=== PATIENT | male | born 1955 | race Caucasian/White ===

== ENCOUNTER 2020-10-01 08:13 | Emergency (ER) | payer OTHER, SELFPAY ==
--- NOTE | ~2020-10-01 | US_ITS ---
EXAMINATION: US VENOUS ULTRASOUND WITH DOPPLER LOWER EXTREMITY, RIGHT CLINICAL INFORMATION: A COMPARISON: None TECHNIQUE: Ultrasound of the deep veins is performed from the hip to the calf with compression sonography and color and pulse Doppler assessment. Spectral analysis with color-flow imaging is performed. FINDINGS: There is normal venous compression and respiratory variation and augmented flow. The visualized common femoral vein, superficial femoral vein, profunda femoral vein, popliteal vein, and the trifurcation region shows no evidence of deep venous thrombosis. There is no significant popliteal fossa cyst. If the patient's symptoms persist, followup ultrasound in 5 days 7 days might be of value to exclude proximal propagation from a non-visualized calf vein. US/US venous duplex LE RT IMPRESSION: No DVT demonstrated in the right lower extremity.
--- NOTE | ~2020-10-01 | US_ITS ---
EXAMINATION: US BILATERAL LOWER EXTREMITY DUPLEX CLINICAL INFORMATION: Claudication. TECHNIQUE: Real-time ultrasound and Doppler techniques (integrating B-mode 2-D vascular images, Doppler spectral analysis and color flow Doppler imaging) were utilized to interrogate the lower extremities. COMPARISON: None. FINDINGS: RIGHT LEG: Right external iliac: 250 cm/s, biphasic. Common femoral artery: 273 cm/s, monophasic. Profunda femoris artery: 192 cm/s, monophasic. Superficial femoral artery (proximal): 22.8 cm/s, monophasic. Superficial femoral artery (mid): Occluded. Superficial femoral artery (distal): 69.2 cm/s, monophasic. Popliteal artery: 66 cm/s, monophasic. Posterior tibial artery: Occluded. Peroneal artery: 9 cm/s, monophasic. A right proximal/mid superficial femoral artery stent is occluded. LEFT LEG: Common femoral artery: 169 cm/s, monophasic. Profunda femoris artery: 147 cm/s, monophasic. Superficial femoral artery (proximal): 123 cm/s, monophasic. Superficial femoral artery (mid): Occluded. Superficial femoral artery (distal): 21.9 cm/s, monophasic. Popliteal artery: 28.7 cm/s, monophasic. Posterior tibial artery: 17.7 cm/s, monophasic. Peroneal artery: 13.8 cm/s, monophasic. US/US arterial duplex LE BI IMPRESSION: 1. Right: A proximal/mid superficial femoral artery stent is occluded. There is flow to the distal SFA via collaterals. The posterior tibial artery is occluded. There is minimal flow within the right peroneal artery. There is significantly elevated velocity and dampened waveform within the right external iliac artery and common femoral artery consistent with inflow stenosis. 2. The left mid superficial femoral artery is occluded. The distal SFA is patent and supplied via collaterals. Monophasic flow within the popliteal artery, posterior tibial artery and peroneal artery.
[2020-10-01 08:43] VITALS: BP 185/86; PULSE 80; RESP 16; TEMP 36.7; O2SAT 97; BMI 19.7
--- NOTE | 2020-10-01 08:51 | ECG_ITS ---
Test Reason : ARRHYTHMIA Blood Pressure : / mmHG Vent. Rate : 081 BPM Atrial Rate : 081 BPM P-R Int : 142 ms QRS Dur : 106 ms QT Int : 370 ms P-R-T Axes : 074 063 077 degrees QTc Int : 429 ms Normal sinus rhythm Normal ECG No previous ECGs available Referred By: Thomas Smith Electronically Signed By:JEROD DONATO
--- NOTE | 2020-10-01 08:54 | ED_ITS ---
HPI - General Adult General Chief complaint: Extremity Problem Stated complaint: LEG PAIN Time Seen by Provider: 10/01/20 08:50 History of Present Illness HPI narrative: 64-year-old male came in for evaluation of her right lower leg pain. 64-year-old male history of extensive peripheral vascular disease needed multiple stent placed in both lower extremities, patient has been having inte rmittent claudication symptoms, patient was cleaning the pool this morning (2 hours ago) when he started to have severe cramps in the right leg, feeling right foot numbness that is not going away with rest. Patient declined otherwise chest pain, shortness of breath. Related Data Previous Rx's Medication Instructions Recorded oxycodone 5 mg PO Q8H PRN #7 tab 10/01/20 oxycodone 5 mg PO Q8H PRN #7 tab 10/01/20 Allergies Allergy/AdvReac Type Severity Reaction Status Date / Time No Known Allergies Allergy Verified 10/01/20 08:51 Review of Systems 2 Review of Systems: All other systems are reviewed and are negative Constitutional: Reports as per HPI and Reports no additional constitutional complaints Eyes: Reports as per HPI and Reports no additional eye complaints Reports system reviewed and no additional complaints, except as documented Cardiovascular: Reports as per HPI and Reports no additional cardiovascular complaints Respiratory: Reports as per HPI and Reports no additional respiratory complaints Gastrointestinal: Reports as per HPI and Reports no additional gastrointestinal complaints Genitourinary: Reports no additional female genitourinary complaints Musculoskeletal: Reports no additional musculoskeletal complaints Skin/Breast: Reports system reviewed and no additional complaints, except as docu Psychiatric: Reports no additional psychiatric complaints Endocrine: Reports no additional endocrine complaints Hematologic/Lymphatic: Reports no additional hematologic/lymphatic complaints Allergic/Immunologic: Reports no additional allergic/immunologic complaints Reports system reviewed and no additional complaints, except as documented and Reports Abnormal speech present [facility] Past Medical History Medical History COPD (chronic obstructive pulmonary disease) Hypertension Myocardial infarction PTSD (post-traumatic stress disorder) Social History Social History Alcohol intake: never Patient Tobacco Use Status: Current someday Tobacco user Use of substances other than those prescribed or required for medical reasons: No Advance Directives: Yes Advance Directives Information Provided: Yes Advance Directives on File: No Physical Exam Vital Signs: Vital Signs: Last Vital Signs Temp 98.0 F 10/01/20 12:29 Pulse 75 10/01/20 12:29 Resp 18 10/01/20 12:29 BP 160/91 H 10/01/20 12:29 Pulse Ox 99 10/01/20 12:29 Body Mass Index 19.7 Vital signs have been reviewed as appeared to be correct. Blood pressure elevated. Heart rate normal. Respiration rate normal. Temperature normal. Oxygen saturation normal. Appearance: Alert. Oriented X3. No acute distress. Head: Normal external exam. Normocephalic. Atraumatic. No Christian signs noted. No raccoon eyes noted Eyes: PERRLA. EOMI. Conjunctiva and sclera normal. Eyelids normal. ENT: TM's Normal. Pharynx normal. Uvula midline. Moist mucous membranes. No trismus noted. No drooling noted. No muffled voice noted. Neck: Normal inspection. Neck supple. FROM. No adenopathy. Thyroid Normal. No meningeal signs. No neck mass noted. CVS: Normal heart rate and rhythm. Heart sound normal. No murmurs noted. Pulses normal throughout. Respiratory: No respiratory distress. Painless inspiration. Breath sounds normal. No wheezes/rales/rhonchi noted. Chest nontender. No accessory muscle usage noted or decreased air movement noted. Abdomen: Soft and nontender. Bowel sounds normal in all 4 quadrants. No distention noted. No organomegaly noted. No visible injury noted. Back: No CVA tenderness. Full range of motion noted. Skin: Skin warm and dry. Normal skin color. Normal skin turgor. No rashes/lesions/lacerations noted. Extremities: right foot is cool, no pt/dp palpable pulse. Neuro: Oriented X 3. No motor deficit. No sensory deficit. Reflexes normal. Course Course Course Narrative: Assessment and plan. 64-year-old male history of extensive peripheral vascular disease came in with severe claudication pain to the right lower extremities, no fevers the finding of acute ischemic foot, pain now under good control with oxycodone, patient has an appointment with his vascular surgeon tomorrow at 13:00. Patient was instructed to keep his appointment. Slight hyperkalemia with normal renal function test. Medical Decision Making Lab Data Lab results reviewed: Yes I reviewed the patient's lab results. Result diagrams: 10/01/20 09:30 10/01/20 09:30 Labs: Lab Results 10/01/20 10/01/20 10/01/20 Range/Units 09:30 09:30 09:30 WBC 9.7 (4.8-10.8) X10*3/uL RBC 4.57 L (4.60-5.80) X10*6/uL Hgb 14.3 (14.0-18.0) g/dl Hct 41.0 L (42-52) % MCV 89.7 (80-98) fL MCH 31.3 (27.0-33.0) pg MCHC 34.9 (31.0-36.0) g/dl RDW 11.9 (11.0-16.0) % Plt Count 169 (160-400) X10*3/uL MPV 10.6 (9.4-12.4) fL Immature Gran % (Auto) 0.4 (0.0-0.4) % Neut % (Auto) 72.3 (45-73) % Lymph % (Auto) 17.1 L (20-40) % [place] % (Auto) 8.0 (2-11) % Eos % (Auto) 1.7 (0-4) % Baso % (Auto) 0.5 (0-2) % Lymph # (Auto) 1.7 (1.2-4.9) X10*3/uL [place] # (Auto) 0.8 (0.1-1.2) X10*3/uL Eos # (Auto) 0.2 (0.0-0.4) X10*3/uL Baso # (Auto) 0.1 (0.0-0.2) X10*3/uL Abs Immat Gran (auto) 0.04 H (0.00-0.03) X10*3/uL Absolute Neuts (auto) 7.0 (2.0-8.3) X10*3/uL Absolute Nucleated RBC 0.000 (0.0-0.012) X10*3/uL Nucleated RBC % (auto) 0.0 (0.0-0.2) /100WBC Sodium 138 (135-145) mmol/L Potassium 5.7 H (3.3-5.1) mmol/L Chloride 103 (96-108) mmol/L Carbon Dioxide 29 (22-29) mmol/L Anion Gap 12 (12-20) BUN 14 (9-16) mg/dL Creatinine 1.14 (0.5-1.4) mg/dL Estim Creat Clear Calc 51.9 Estimated GFR > 60 Random Glucose 106 (60-115) mg/dL Calcium 9.9 (8.4-10.2) mg/dL Total Creatine Kinase 55 (38-174) U/L Imaging Data Arterial lower extremity Doppler: Radiologist's impression: IMPRESSION: 1. Right: A proximal/mid superficial femoral artery stent is occluded. There is flow to the distal SFA via collaterals. The posterior tibial artery is occluded. There is minimal flow within the right peroneal artery. There is significantly elevated velocity and dampened waveform within the right external iliac artery and common femoral artery consistent with inflow stenosis. 2. The left mid superficial femoral artery is occluded. The distal SFA is patent and supplied via collaterals. Monophasic flow within the popliteal artery, posterior tibial artery and peroneal artery. Venous Doppler bilateral: Radiologist's impression: No DVT demonstrated in the right lower extremity. Discharge Plan Discharge Clinical Impression: Peripheral vascular disease of extremity with claudication, Hyperkalemia Patient Disposition: Home, Self-Care Instructions: Peripheral Vascular Disease (ED) Prescriptions: New oxycodone 5 mg tablet 5 mg PO Q8H PRN (Reason: pain) Qty: 7 RF: 0 oxycodone 5 mg tablet 5 mg PO Q8H PRN (Reason: pain) Qty: 7 RF: 0 Referrals: Renetta Campbell MD [Primary Care Provider] - 2 days (Follow-up with your vascular surgeon as scheduled tomorrow.) Interventions: ED Discharge Assessment Last Done: 10/01/20 12:42 Discharge Date/Time: 10/01/20 12:42
--- NOTE | 2020-10-01 09:20 | PC.NURSE ---
no dorsalis pedis/tibal pulse felt/heard with er portable ultrasound on r leg. faint dorsalis pedis puls heard/felt on l leg, md aware.
[2020-10-01 09:33] LABS: MANUAL DIFF FLAG NO
[2020-10-01 09:35] LABS: Basophils Absolute Auto 0.1 X10*3/uL (0.0-0.2); Basophils Percent Auto 0.5 % (0-2); Eosinophils Absolute Auto 0.2 X10*3/uL (0.0-0.4); Eosinophils Percent Auto 1.7 % (0-4); Hemoglobin 14.3 g/dl (14.0-18.0); Imm Gran Abs Auto 0.04 X10*3/uL (0.00-0.03); Imm Gran Pct Auto 0.4 % (0.0-0.4); Lymphocytes Absolute Auto 1.7 X10*3/uL (1.2-4.9); Lymphocytes Percent Auto 17.1 % (20-40); Mean Corpuscular HGB Conc 34.9 g/dl (31.0-36.0); Mean Corpuscular Hemoglobin 31.3 pg (27.0-33.0); Mean Corpuscular Volume 89.7 fL (80-98); Mean Platelet Volume 10.6 fL (9.4-12.4); Monocytes Absolute Auto 0.8 X10*3/uL (0.1-1.2); Neutrophils Percent Auto 72.3 % (45-73); Platelet Count 169 X10*3/uL (160-400); Red Blood Count 4.57 X10*6/uL (4.60-5.80); Red Cell Distribution Width 11.9 % (11.0-16.0); White Blood Count 9.7 X10*3/uL (4.8-10.8)
[2020-10-01] MEDS: oxyCODONE HCl Immed Release 5 MG TABLET PO ×2 (09:36→11:42)
[2020-10-01 09:57] LABS: Anion Gap 12 (12-20); Blood Urea Nitrogen 14 mg/dL (9-16); Calcium 9.9 mg/dL (8.4-10.2); Carbon Dioxide 29 mmol/L (22-29); Chloride 103 mmol/L (96-108); Creatinine Clr Calc Pharmacy 51.9; Estimated Glomerular Filt Rate > 60; Glucose Random 106 mg/dL (60-115); Potassium 5.7 mmol/L (3.3-5.1); Sodium 138 mmol/L (135-145)
[2020-10-01 10:57] VITALS: BP 147/89; PULSE 81; RESP 16; O2SAT 98
[2020-10-01 12:29] VITALS: BP 160/91; PULSE 75; RESP 18; TEMP 36.7; O2SAT 99
== END 2020-10-01 12:42 | disposition home or self-care (01) ==
PROVIDERS: Emergency Provider Emergency Medicine; PCP Internal Medicine
DX: I73.9 Peripheral vascular disease, unspecified (principal); E87.5 Hyperkalemia; M79.661 Pain in right lower leg; I10 Essential (primary) hypertension; J44.9 Chronic obstructive pulmonary disease, unspecified; I25.2 Old myocardial infarction; Z95.820 Peripheral vascular angioplasty status with implants and grafts
CPT/HCPCS: 36415; 80048; 82550; 85025; 93005; 93925; 93971; 99285